=== PATIENT | female | born 1995 | race Caucasian/White ===

== ENCOUNTER 2018-10-14 17:31 | Emergency (ER) | payer OTHER ==
[~2018-10-14] VITALS: Ht 157.5 cm; Wt 55.8 kg
[2018-10-14 17:56] LABS: BILIRUBIN,URINE NEGATIVE (NEGATIVE); CLARITY,URINE SLIGHTLY CLOUDY; COLOR,URINE YELLOW; GLUCOSE, URINE (UA) NEGATIVE (NEGATIVE); KETONES,URINE 1+ (NEGATIVE); LEUKOCYTE ESTERASE ,URINE 2+ (NEGATIVE); NITRITE,URINE NEGATIVE (NEGATIVE); PH,URINE 5 (5-9); PROTEIN,URINE 2+ (NEGATIVE); UROBILINOGEN,URINE NORMAL (NORMAL)
--- NOTE | 2018-10-14 17:58 | ED Abdominal Pain ---
General Chief Complaint: Abdominal/GI Problems Stated Complaint: VOMITING, RT ABD PAIN Source of Information: Patient Exam Limitations: No Limitations History of Present Illness Date Seen by Provider: Oct 14, 2018 Time Seen by Provider: 17:57 Initial Comments To ER with reports of right-sided abdominal pain vomiting and chills. She was diagnosed by [facility] on Wednesday of this week (today is Wednesday ) with a urinary tract infection and started on Cipro. Her symptoms intermittently got better and then recurred this evening. Timing/Duration: 1-2 Days Severity/Quality: Moderate Location: RLQ Radiation: No Radiation Activities at Onset: None Allergies and Home Medications Allergies Coded Allergies: lactose (Verified Allergy, Unknown, 10/14/18) Patient Home Medication List Home Medication List Reviewed: Yes Review of Systems Review of Systems Constitutional: see HPI EENTM: No Symptoms Reported Respiratory: No Symptoms Reported Cardiovascular: No Symptoms Reported Gastrointestinal: See HPI, Abdominal Pain Genitourinary: No Symptoms Reported Musculoskeletal: no symptoms reported Skin: no symptoms reported Psychiatric/Neurological: No Symptoms Reported Endocrine: No Symptoms Reported Hematologic/Lymphatic: No Symptoms Reported Past Mippxqk-Nxbgzo-Upfctd Hx Patient Social History Alcohol Use: Denies Use Recreational Drug Use: No Smoking Status: Never a Smoker Recent Foreign Travel: No Contact w/Someone Who Travel: No Recent Hopitalizations: No Seasonal Allergies Seasonal Allergies: No Past Medical History Surgeries: Yes (lymph node removal) Respiratory: No Cardiac: No Neurological: No Genitourinary: No Gastrointestinal: No Musculoskeletal: No Endocrine: No HEENT: No Cancer: No Psychosocial: No Blood Disorders: No Physical Exam Vital Signs Vital Signs - First Documented 10/14/18 17:53 Temp 98.2 Pulse 95 Resp 14 B/P (MAP) 132/87 (102) Pulse Ox 98 O2 Delivery Room Air Capillary Refill : Height/Weight/BMI Height: '" Weight: lbs. oz. kg; BMI Method: General Appearance: WD/WN, no apparent distress HEENT: PERRL/EOMI, normal ENT inspection Neck: non-tender, full range of motion Respiratory: no respiratory distress, no accessory muscle use Cardiovascular: regular rate, rhythm, no murmur Gastrointestinal: normal bowel sounds, soft, tenderness Extremities: normal range of motion, non-tender Neurologic/Psychiatric: alert, normal mood/affect, oriented x 3 Skin: normal color, warm/dry Progress/Results/Core Measures Results/Orders Lab Results Laboratory Tests Test 10/14/18 17:45 10/14/18 18:15 Range/Units Urine Color YELLOW Urine Clarity SLIGHTLY CLOUDY Urine pH 5 5-9 Urine Specific [place] 1.020 1.016-1.022 Urine Protein 2+ H NEGATIVE Urine Glucose (UA) NEGATIVE NEGATIVE Urine Ketones 1+ H NEGATIVE Urine Nitrite NEGATIVE NEGATIVE Urine Bilirubin NEGATIVE NEGATIVE Urine Urobilinogen NORMAL NORMAL MG/DL Urine Leukocyte Esterase 2+ H NEGATIVE Urine RBC (Auto) 5+ H NEGATIVE Urine RBC 50-100 H /HPF Urine WBC 0-2 /HPF Urine Squamous Epithelial Cells 5-10 /HPF Urine Crystals NONE /LPF Urine Bacteria NEGATIVE /HPF Urine Casts NONE /LPF Urine Mucus NEGATIVE /LPF Urine Culture Indicated NO White Blood Count 14.3 H 4.3-11.0 10^3/uL Red Blood Count 4.77 4.35-5.85 10^6/uL Hemoglobin 13.4 11.5-16.0 G/DL Hematocrit 40 35-52 % Mean Corpuscular Volume 83 80-99 FL Mean Corpuscular Hemoglobin 28 25-34 PG Mean Corpuscular Hemoglobin Concent 34 32-36 G/DL Red Cell Distribution Width 12.9 10.0-14.5 % Platelet Count 235 130-400 10^3/uL Mean Platelet Volume 10.0 7.4-10.4 FL Neutrophils (%) (Auto) 89 H 42-75 % Lymphocytes (%) (Auto) 7 L 12-44 % Monocytes (%) (Auto) 5 0-12 % Eosinophils (%) (Auto) 0 0-10 % Basophils (%) (Auto) 0 0-10 % Neutrophils # (Auto) 12.7 H 1.8-7.8 X 10^3 Lymphocytes # (Auto) 0.9 L 1.0-4.0 X 10^3 Monocytes # (Auto) 0.7 0.0-1.0 X 10^3 Eosinophils # (Auto) 0.0 0.0-0.3 10^3/uL Basophils # (Auto) 0.0 0.0-0.1 10^3/uL Neutrophils % (Manual) 90 % Lymphocytes % (Manual) 9 % Monocytes % (Manual) 1 % Eosinophils % (Manual) 0 % Basophils % (Manual) 0 % Band Neutrophils 0 % Blood Morphology Comment NORMAL Sodium Level 137 135-145 MMOL/L Potassium Level 3.4 L 3.6-5.0 MMOL/L Chloride Level 105 98-107 MMOL/L Carbon Dioxide Level 20 L 21-32 MMOL/L Anion Gap 12 5-14 MMOL/L Blood Urea Nitrogen 9 7-18 MG/DL Creatinine 0.85 0.60-1.30 MG/DL Estimat Glomerular Filtration Rate > 60 BUN/Creatinine Ratio 11 Glucose Level 99 70-105 MG/DL Calcium Level 9.4 8.5-10.1 MG/DL Corrected Calcium 9.1 8.5-10.1 MG/DL Total Bilirubin 0.4 0.1-1.0 MG/DL Aspartate Amino Transf (AST/SGOT) 30 5-34 U/L Alanine Aminotransferase (ALT/SGPT) 22 0-55 U/L Alkaline Phosphatase 70 40-136 U/L Total Protein 7.7 6.4-8.2 GM/DL Albumin 4.4 3.2-4.5 GM/DL Serum Test, Qualitative NEGATIVE NEGATIVE My Orders Orders - JEROD FERNÁNDEZ APRN Cbc With Automated Diff (10/14/18 17:45) Comprehensive Metabolic Panel (10/14/18 17:45) Ua Culture If Indicated (10/14/18 17:45) Urine Bedside (10/14/18 17:45) Iv Heplock-Insert (Order) (10/14/18 17:45) Ketorolac Injection (Toradol Injection) (10/14/18 18:00) Ns Iv 1000 Ml (Sodium Chloride 0.9%) (10/14/18 18:00) Ondansetron Injection (Zofran Injectio (10/14/18 18:00) Hcg,Qualitative Serum (10/14/18 17:52) Manual Differential (10/14/18 18:15) Ct Abd/Pelv W (Appendicitis) (10/14/18 18:30) Iohexol Injection (Omnipaque 350 Mg/Ml 1 (10/14/18 19:00) Contrast Received (Contrast Received) (10/14/18 19:00) Sodium Chloride Flush (Catheter Flush Sy (10/14/18 19:00) Ns (Ivpb) (Sodium Chloride 0.9% Ivpb Bag (10/14/18 19:00) Ceftriaxone For Iv Use (Rocephin For I (10/14/18 19:30) Ns (Ivpb) (Sodium Chloride 0.9% Ivpb Bag (10/14/18 19:37) Promethazine Injection (Phenergan Injec (10/14/18 20:00) Rx-Ondansetron Po (Rx-Zofran Po) (10/14/18 19:46) Rx-Oxycodone/Apap 5-325 Mg (Rx-Percocet (10/14/18 20:00) Medications Given in ED Current Medications Medications Dose Ordered Sig/Keenan Route Start Time Stop Time Status Last Admin Dose Admin Ceftriaxone Sodium 1000 mg/ Sterile Water 10 ml @ 200 mls/hr ONCE ONCE IV 10/14/18 19:30 10/14/18 19:32 DC 10/14/18 19:51 200 MLS/HR Iohexol 75 ml ONCE ONCE IV 10/14/18 19:00 10/14/18 19:01 DC 10/14/18 19:06 75 ML Ketorolac Tromethamine 15 mg ONCE ONCE IVP 10/14/18 18:00 10/14/18 18:01 DC 10/14/18 18:12 15 MG Ondansetron HCl 4 mg ONCE ONCE IVP 10/14/18 18:00 10/14/18 18:01 DC 10/14/18 18:12 4 MG Oxycodone/ Acetaminophen 1 ea Q4H PRN PO 10/14/18 20:00 10/14/18 19:56 1 EA Promethazine HCl 12.5 mg ONCE ONCE IVP 10/14/18 20:00 10/14/18 20:01 DC 10/14/18 19:56 12.5 MG Sodium Chloride 10 ml NEEDED PRN IV 10/14/18 19:00 10/14/18 19:06 10 ML Sodium Chloride 50 ml @ STK-MED ONCE .ROUTE 10/14/18 19:37 10/14/18 19:42 DC 10/14/18 19:51 100 MLS/HR Sodium Chloride 100 ml ONCE ONCE IV 10/14/18 19:00 10/14/18 19:01 DC 10/14/18 19:06 80 ML Vital Signs/I&O 10/14/18 17:53 Temp 98.2 Pulse 95 Resp 14 B/P (MAP) 132/87 (102) Pulse Ox 98 O2 Delivery Room Air Departure Communication (Admissions) 2009-she was vomiting before she got here. This would explain at least in part her leukocytosis. She is afebrile. She is not tachycardic. She has a 7 day of Cipro called in on Wednesday of last week, this will last her until 10/18/18. NAME: [facility]RE[facility] REC#: [id number] PT STATUS: REG ER : 1995 PHYSICIAN: JEROD FERNÁNDEZ APRN ADMIT DATE: 10/14/18/ER Signed Date of Exam:10/14/18 CT ABD/PELV W (APPENDICITIS) PROCEDURE: CT abdomen and pelvis with contrast, rule out appendicitis. TECHNIQUE: Multiple contiguous axial images were obtained through the abdomen and pelvis after the administration of intravenous contrast. INDICATION: Abdominal pain COMPARISON: None available FINDINGS: The visualized lung bases are clear. The liver, spleen, adrenal glands, pancreas, and gallbladder are unremarkable. The left kidney and left ureter are unremarkable. A 4.5 mm calculus is identified within the right ureterovesicular junction. This is resulting in moderate right-sided hydroureteronephrosis. Slightly delayed enhancement of the right kidney. The left kidney and left ureter are unremarkable. No aneurysmal dilatation of the abdominal aorta. The urinary bladder is unremarkable. A 1.4 cm involuting follicle within the right ovary. Otherwise, the uterus and adnexal regions are unremarkable. The appendix is unremarkable. No bowel obstruction or pneumatosis. No significant adenopathy, free air, or free fluid within the abdomen or pelvis. No acute osseous abnormality. IMPRESSION: A 4.5 mm calculus within the right ureterovesicular junction resulting in moderate right hydroureteronephrosis and obstructive uropathy. The appendix is unremarkable. Involuting right ovarian cyst/follicle. Dictated by: Dictated on workstation # [id number] Dict: 10/14/181911 Trans: 10/14/181919 HARINI [id number] Interpreted by: ROULA OCHOA MD Electronically signed by: ROULA OCHOA MD 10/14/181919 Impression Primary Impression: Right ureteral calculus Disposition: 01 HOME, SELF-CARE Condition: Stable Departure-Patient Inst. Decision time for Depature: 19:23 Referrals: NO,LOCAL PHYSICIAN (PCP) Primary Care Physician ABIGAIL EVANGELISTA MD Patient Instructions: Kidney Stones (DC) Add. Discharge Instructions: 1. Strain all of your urine. He should see the stone when it passes. Return to ER for intolerable pain or fevers. Follow-up with Dr. Evangelista from urology on Wednesday if you have still not passed the stone. Continue the antibiotics that you were prescribed earlier this week. You may add ibuprofen 600 mg (3 of the regular strength tablets) every 8 hours for additional pain control. All discharge instructions reviewed with patient and/or family. Voiced understanding. Scripts Oxycodone HCl/Acetaminophen (Percocet 5-325 mg Tablet) 1 Each Tablet 1 TAB PO Q4H for PAIN-MODERATE MDD 6, #20 TAB Prov: JEROD FERNÁNDEZ APRN 10/14/18 Ondansetron (Ondansetron Odt) 4 Mg Tab.rapdis 4 MG PO Q4H PRN for NAUSEA/VOMITING-1ST LINE, #10 TAB Prov: JEROD FERNÁNDEZ APRN 10/14/18 Tamsulosin HCl (Flomax) 0.4 Mg Cap 0.4 MG PO DAILY, #10 CAP Prov: JEROD FERNÁNDEZ APRN 10/14/18 Copy Copies To 1: DAVID VILLALOBOS MD; ABIGAIL EVANGELISTA MD, PETER J APRN Oct 14, 2018 17:58
[2018-10-14] MEDS ORDERED: NS IV 1000 ML 1,000 ML IV SCH (18:00)
[2018-10-14] MEDS ORDERED: KETOROLAC 30 MG/ML VIAL IVP ONE (18:00)
[2018-10-14] MEDS ORDERED: ONDANSETRON 4 MG/2 ML (SDV) Z0FRAN IVP ONE (18:00)
[2018-10-14 18:09] LABS: BACTERIA,URINE NEGATIVE /HPF; RBC,URINE 50-100 /HPF; WBC,URINE 0-2 /HPF
[2018-10-14 18:26] LABS: BASOPHILS % (AUTO) 0 % (0-10); EOSINOPHILS % (AUTO) 0 % (0-10); HEMATOCRIT 40 % (35-52); HEMOGLOBIN 13.4 G/DL (11.5-16.0); LYMPHOCYTES # (AUTO) 0.9 X 10^3 (1.0-4.0); LYMPHOCYTES % (AUTO) 7 % (12-44); MEAN CORPUSCULAR HEMOGLOBIN 28 PG (25-34); MEAN CORPUSCULAR HGB CONC 34 G/DL (32-36); MEAN CORPUSCULAR VOLUME 83 FL (80-99); MONOCYTES # (AUTO) 0.7 X 10^3 (0.0-1.0); MONOCYTES % (AUTO) 5 % (0-12); NEUTROPHILS # (AUTO) 12.7 X 10^3 (1.8-7.8); NEUTROPHILS % (AUTO) 89 % (42-75); PLATELET COUNT 235 10^3/uL (130-400); RED CELL DISTRIBUTION WIDTH 12.9 % (10.0-14.5); WHITE BLOOD COUNT 14.3 10^3/uL (4.3-11.0)
[2018-10-14 18:50] LABS: ALANINE AMINOTRANSFERASE 22 U/L (0-55); ALBUMIN 4.4 GM/DL (3.2-4.5); ALKALINE PHOSPHATASE 70 U/L (40-136); BILIRUBIN,TOTAL 0.4 MG/DL (0.1-1.0); BUN/CREATININE RATIO 11; CALCIUM 9.4 MG/DL (8.5-10.1); CARBON DIOXIDE 20 MMOL/L (21-32); CHLORIDE 105 MMOL/L (98-107); CREATININE SERUM 0.85 MG/DL (0.60-1.30); GFR ESTIMATED > 60; GLUCOSE 99 MG/DL (70-105); POTASSIUM 3.4 MMOL/L (3.6-5.0); SODIUM 137 MMOL/L (135-145); TOTAL PROTEIN 7.7 GM/DL (6.4-8.2)
[2018-10-14 18:53] LABS: BAND NEUTROPHILS 0 %; BASOPHILS % (MANUAL) 0 %; EOSINOPHILS % (MANUAL) 0 %; LYMPHOCYTES % (MANUAL) 9 %; MONOCYTES % (MANUAL) 1 %; NEUTROPHILS % (MANUAL) 90 %
[2018-10-14 18:54] LABS: RBC MORPH NORMAL
[2018-10-14] MEDS ORDERED: NS 100 ML (IVPB) BAG IV ONE (19:00)
[2018-10-14] MEDS ORDERED: RECEIVED CONTRAST (Hold Metformin) IV SCH (19:00)
[2018-10-14] MEDS ORDERED: CATHETER FLUSH 10 ML SYR IV PRN (19:00)
[2018-10-14] MEDS ORDERED: IOHEXOL 350 MG/ML 100 ML (OMNIPAQUE 350) VIAL IV ONE (19:00)
--- NOTE | 2018-10-14 19:20 | Diagnostic Imaging Report ---
PROCEDURE: CT abdomen and pelvis with contrast, rule out appendicitis. TECHNIQUE: Multiple contiguous axial images were obtained through the abdomen and pelvis after the administration of intravenous contrast. INDICATION: Abdominal pain COMPARISON: None available FINDINGS: The visualized lung bases are clear. The liver, spleen, adrenal glands, pancreas, and gallbladder are unremarkable. The left kidney and left ureter are unremarkable. A 4.5 mm calculus is identified within the right ureterovesicular junction. This is resulting in moderate right-sided hydroureteronephrosis. Slightly delayed enhancement of the right kidney. The left kidney and left ureter are unremarkable. No aneurysmal dilatation of the abdominal aorta. The urinary bladder is unremarkable. A 1.4 cm involuting follicle within the right ovary. Otherwise, the uterus and adnexal regions are unremarkable. The appendix is unremarkable. No bowel obstruction or pneumatosis. No significant adenopathy, free air, or free fluid within the abdomen or pelvis. No acute osseous abnormality. IMPRESSION: A 4.5 mm calculus within the right ureterovesicular junction resulting in moderate right hydroureteronephrosis and obstructive uropathy. The appendix is unremarkable. Involuting right ovarian cyst/follicle. Dictated by: Dictated on workstation # [id number]
[2018-10-14] MEDS ORDERED: cefTRIAXone FOR IV USE 1,000 MG in WATER (STERILE) FOR INJECTION 10 ML IV ONE (19:30)
[2018-10-14] MEDS ORDERED: NS (IVPB) 50 ML ONE (19:37)
[2018-10-14] MEDS ORDERED: RX-ONDANSETRON 4 MG ODT (ZOFRAN) PPK #4 PO STA (19:46)
[2018-10-14] MEDS ORDERED: PROMETHAZINE INJ 25 MG/ML (PHENERGAN) AMP IVP ONE (20:00)
[2018-10-14] MEDS ORDERED: RX-OXYCODONE/APAP 5-325 MG #4 TAB PK PO PRN (20:00)
[2018-10-14] MEDS ORDERED: TAMS0.4C98 PO (20:10)
[2018-10-14] MEDS ORDERED: ONDA4TAB11 PO (20:10)
[2018-10-14] MEDS ORDERED: OXYC1TAB87 PO (20:10)
[2018-10-14 20:39] VITALS: BP 118/88
[2018-10-14] MEDS ORDERED: fentaNYL INJECTION 100 MCG/2 ML AMP IVP ONE (21:15)
== END 2018-10-14 21:34 | disposition home or self-care (01) ==
LOC: ER 17:35
DX: N13.2 Hydronephrosis with renal and ureteral calculous obstruction (principal); Z91.040 Latex allergy status
CPT/HCPCS: 36415; 74177; 80053; 81000; 84703; 85007; 85027